=== PATIENT | male | born 1960 | race Hispanic/Latino ===

== ENCOUNTER 2017-06-28 10:10 | Day surgery (SDC) | payer OTHER ==
[~2017-06-28 10:10] MED LIST: ANCEF/STERILE WATER 2 GM/20 ML IV NR
[2017-06-28] MEDS ORDERED: NACL BACTERIOSTATIC INFILTRATI ONE (10:56)
--- NOTE | 2017-06-28 11:03 | Anesthesia Consultation ---
Anesthesia Consult and Med Hx Date of service: 06/28/17 - Airway Anesthetic Teeth Evaluation: Good ROM Head & Neck: Adequate Mental/Hyoid Distance: Adequate Mallampati Class: Class II Intubation Access Assessment: Probably Good - Pulmonary Exam CTA: Yes - Cardiac Exam Cardiac Exam: RRR - Pre-Operative Health Status ASA Pre-Surgery Classification: ASA2 Proposed Anesthetic Plan: General - Pulmonary Hx Smoking: No Hx Sleep Apnea: No (BHARATI PRE SCREEN HIGH RISK) - Cardiovascular System Hx Hypertension: Yes (X 10 YRS) - Other Systems Hx Cancer: No
--- NOTE | 2017-06-28 11:04 | Anesthesia Day of Surgery ---
Anesthesia Day of Surgery - Day of Surgery Patient Examined: Yes Patient H&P Reviewed: Yes Patient is NPO: Yes
[2017-06-28] MEDS ORDERED: DIPRIVAN 10 MG/ML IV ONE (11:07)
[2017-06-28] MEDS ORDERED: SUBLIMAZE ONE (11:07)
[2017-06-28] MEDS ORDERED: XYLOCAINE MPF 2% ONE (11:07)
[2017-06-28] MEDS ORDERED: LACTATED RINGERS 1,000 ML IV SCH (12:00)
[2017-06-28] MEDS ORDERED: VERSED IV NR (12:00)
[2017-06-28] MEDS ORDERED: PEPCID PO NR (12:00)
[2017-06-28] MEDS ORDERED: DECADRON ONE (12:14)
[2017-06-28] MEDS ORDERED: ZOFRAN ONE (12:14)
--- NOTE | 2017-06-28 12:25 | Post Operative Note ---
Date of procedure: 06/28/17 Pre-op diagnosis: left renal stones Post-op diagnosis: same Findings: lucent stones Procedure: L ESWL Anesthesia: LEVI Surgeon: VA KATZ Estimated blood loss: none Pathology: none Condition: stable Disposition: PACU
--- NOTE | 2017-06-28 12:26 | Discharge Summary ---
Short Stay Discharge Plan Activity: other (no straining ) Weight Bearing Status: Full Weight Bearing Diet: low fat, low cholesterol, low salt Special Instructions: other (inc fluids ) Follow up with: CRUZ PENDLETON [Other] - 7 Days LUZ ZAVALETA MD [Staff Physician] - 7 Days
--- NOTE | 2017-06-28 12:51 | Operative Report ---
PREOPERATIVE DIAGNOSIS: Renal stones, uric acid. POSTOPERATIVE DIAGNOSIS: Renal stones, uric acid. PROCEDURE: Left lithotripsy with IV contrast insertion. SURGEON: Bc Clarke M.D. ANESTHESIA: General. FINDINGS: This is a gentleman with lucent stones. He has been on allopurinol. We discussed with him alkalinization. He now presents for lithotripsy. DESCRIPTION OF PROCEDURE: The patient was brought to the lithotripsy unit and placed on the table. Following induction of anesthesia, IV contrast was instilled. I spoke to Dr. Valdez. There is a renal pelvic stone. We could see the shadow around the contrast. Shocks were begun at 1 kV and renal pause was carried out. At this point, shocks went up to 6 kV. We did about 300 shocks to 6 kV, most of it was 4 and 5 kV. The patient tolerated the procedure well. No significant complications. He was brought to recovery in stable condition. JOB# [id number] WANDY/ROSALIA
[2017-06-28 13:18] VITALS: BP 133/81
--- NOTE | 2017-06-28 13:20 | Post Anesthesia Evaluation ---
- Post Anesthesia Evaluation Patient Participated: Yes Airway Patent: Yes Stable Respiratory Function: Yes Nausea/Vomiting: No Temp > 96.8F: Yes Pain Manageable: Yes Adequeate Hydration: Yes Anesthesia Complications: No
[2017-06-28] MEDS ORDERED: PERCOCET 5/325 PO PRN (13:30)
== END 2017-06-28 10:11 | disposition home or self-care (01) ==
LOC: OR 10:10
PROVIDERS: ATTEND Urology
DX: N20.0 Calculus of kidney (principal); I10 Essential (primary) hypertension; E78.00 Pure hypercholesterolemia, unspecified; K21.9 Gastro-esophageal reflux disease without esophagitis; Z90.89 Acquired absence of other organs; Z79.899 Other long term (current) drug therapy
CPT/HCPCS: 50590; J0690; J1100; J2250; J2405; J2704; J3010; J7120; Q9967